=== PATIENT | female | born 2000 | race Two or more races ===

== ENCOUNTER 2023-11-04 13:38 | Emergency (ER) | payer OTHER ==
[~2023-11-04] VITALS: Ht 157.5 cm; Wt 59.9 kg
[2023-11-04] MEDS ORDERED: CALTRATE 600 +1 EAC1 PO (13:56)
[2023-11-04] MEDS ORDERED: BIOTIN1 M1 PO (13:56)
[2023-11-04] MEDS ORDERED: NEURIN (13:56)
[2023-11-04] MEDS ORDERED: FOSAMAX70 MG PO (13:57)
[2023-11-04] MEDS ORDERED: CRESTOR10 MG PO (13:57)
[2023-11-04] MEDS ORDERED: STELARA (13:58)
[2023-11-04] MEDS ORDERED: STELARA130 MG/26 IV (13:58)
[2023-11-04] MEDS ORDERED: AMOX1TAB5 PO (15:05)
== END 2023-11-04 15:55 | disposition home or self-care (01) ==
LOC: ER 13:39
DX: S60.571A Other superficial bite of hand of right hand, initial encounter (principal); W64.XXXA Exposure to other animate mechanical forces, initial encounter; Y93.89 Activity, other specified; Y92.89 Other specified places as the place of occurrence of the external cause